=== PATIENT | female | born 1990 | race Caucasian/White ===

== ENCOUNTER 2016-12-27 17:13 | Emergency (ER) | payer OTHER ==
[2016-12-27] MEDS ORDERED: NS 1,000 ML IV ONE (17:19)
--- NOTE | 2016-12-27 17:25 | CPEKG ---
Heart Rate: 112 RR Interval: 536 P-R Interval: 160 QRSD Interval: 80 QT Interval: 336 QTC Interval: 459 P Edroy: 68 QRS Edroy: 80 T Wave Edroy: 21 EKG Severity - BORDERLINE ECG - EKG Impression: SINUS TACHYCARDIA EKG Impression: INFERIOR Q WAVES, PROBABLY NORMAL VARIATION Electronically Signed By: Jossue Barroso 27-Dec-2016 17:27:38
--- NOTE | 2016-12-27 17:26 | EDPHY ---
H & P HPI/ROS: CHIEF COMPLAINT: Seizure, chest pain HISTORY OF PRESENT ILLNESS: Patient is a 26-year-old female who comes to the emergency department after having a seizure at the store. After the seizure she began complaining of chest pain. She does have some abrasions to her tongue. She was not incontinent. Her boyfriend states that she was walking and then suddenly became stiff and fell to the ground. boyfriend is not here and it is currently unknown how long the seizure lasted. The patient states that she has had 1 seizure before but no cause was found. At that time she is on a very strict diet and was also dehydrated. 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 She denies any cardiac history. She denies being on any strict diet today. She denies any alcohol abuse or benzodiazepine use. She is not sure as to whether not she had chest pain prior to collapsing. She also states that she was started on antibiotics for strep throat and mono which was diagnosed 2 days ago at the urgent care. She states that her throat is feeling better. REVIEW OF SYSTEMS: Constitutional: denies: chills, fever, recent illness, recent injury EENTM: See HPI Respiratory: denies: cough, shortness of breath Cardiac: See HPI Gastrointestinal/Abdominal: denies: abdominal pain, diarrhea, nausea, vomiting, blood streaked stools Genitourinary: denies: dysuria, frequency, hematuria, pain Musculoskeletal: denies: joint pain, muscle pain Skin: denies: lesions, rash, jaundice, bruising Neurological: denies: headache, numbness, paresthesia, tingling, dizziness, weakness Hematologic/Lymphatic: denies: blood clots, easy bleeding, easy bruising Immunologic/allergic: denies: HIV/AIDS, transplant EXAM: GENERAL: Well-appearing, well-nourished and in no acute distress. HEAD: Atraumatic, normocephalic. EYES: Pupils equal round and reactive to light, extraocular movements intact, sclera anicteric, conjunctiva are normal. ENT: Abrasions/laceration to anterior lateral tongue. TMs normal, nares patent , oropharynx clear without exudates. Moist mucous membranes. NECK: Normal range of motion, supple without lymphadenopathy or JVD. LUNGS: Breath sounds clear to auscultation bilaterally and equal. No wheezes rales or rhonchi. HEART: Regular rate and rhythm without murmurs, rubs or gallops. ABDOMEN: Soft, nontender, normoactive bowel sounds. No guarding, no rebound. No masses appreciated. BACK: No CVA tenderness, no spinal tenderness, step-offs or deformities EXTREMITIES: Normal range of motion, no pitting or edema. No clubbing or cyanosis. NEUROLOGICAL: Cranial nerves II through XII grossly intact. Normal speech, normal gait. 5/5 strength, normal movement in all extremities, normal sensation PSYCH: Normal mood, normal affect. SKIN: Warm, dry, normal turgor, no visible rashes or lesions. Source: Patient, EMS Exam Limitations: No limitations - Medical/Surgical History Hx Asthma: No Hx Chronic Respiratory Disease: No Hx Diabetes: No Hx Cardiac Disease: No Hx Renal Disease: No Hx Cirrhosis: No Hx Alcoholism: No - Family History Significant Family History: No pertinent family hx - Social History Smoking Status: Never smoked Alcohol Use: Sober Drug Use: None Constitutional: Initial Vital Signs Temperature (C) 37.2 C 12/27/16 17:32 Heart Rate 116 H 12/27/16 17:32 Respiratory Rate 20 12/27/16 17:32 Blood Pressure 144/95 H 12/27/16 17:32 O2 Sat (%) 96 12/27/16 17:32 O2 Delivery Mode Room Air,Nasal Cannula O2 (L/minute) 2 Allergies/Adverse Reactions: metoclopramide [From Reglan] Allergy (Verified 12/27/16 17:41) Home Medications: Medication Instructions Recorded Amoxicillin 12/27/16 Lexapro 12/27/16 Restoril 12/27/16 Wellbutrin Xl 12/27/16 Xarelto 12/27/16 chlordiazePOXIDE [Librium 25 mg 25 mg PO ONCE #14 cap 12/27/16 (*)] Medical Decision Making - Diagnostics EKG Interpretation: An EKG obtained and was read and documented in trace view. Please see trace view for full reading and report. Sinus tachycardia, no acute ischemic changes. She does have signs of S1 q.3h T3. Imaging: Results: CT scan of the head was obtained. The results of the study are negative. The study was read by Dr. Henrique Cueva. I viewed the images myself on the PACS system. Results: CT scan of the chest angiogram was obtained. The results of the study are negative. The study was read by Dr. Henrique Cueva. I viewed the images myself on the PACS system. ED Course/Re-evaluation: The patient's fiancee and mother no here. They state that she appear to stiffen up and then collapsed to the ground. She hit her head hard. She then stiff in her back and arch her back for about 30-45 seconds. she then seem to calm down but was confused. The they were not aware for previous seizure but the patient tells me that she was on a extremely low carbohydrate diet and had a low blood glucose at the time. She just ate prior to the episode today. 6:50 p.m. the patient is feeling much better. Her headache resolved with Dilaudid bruise now returning. She is asking for more pain medication. She is not supposed to take Toradol or ibuprofen because of her Xarelto. Also she tells me now that she had taken Valium for a long time for anxiety and recently switched to Klonopin. She switched from Klonopin to Restoril and has taken her last dose of Klonopin 3 days ago. she also did not take her rest over the last 2 days. This is likely the cause of her seizures. She is likely having a withdrawal syndrome. She is not tachycardic or tremulous. She would prefer to manage this from home. Will start her on Librium taper. She will continue taking Restoril at night for sleep. She is in the and has some degree PTSD. Differential Diagnosis: Partial list of the Differential diagnosis considered include but were not limited to; dehydration, seizure, benzodiazepine withdrawal, alcohol withdrawal , electrolyte abnormality, hypoglycemia, syncope, PE, head injury and although unlikely based on the history and physical exam, I also considered non accidental trauma, infection. I discussed these differential diagnoses and the plan with the patient as well as the usual and expected course. The patient understands that the diagnosis is provisional and that in medicine we are not always correct and that further workup is often warranted. Usual and customary warnings were given. All of the patient's questions were answered. The patient was instructed to return to the emergency department should the symptoms at all worsen or return, otherwise to followup with the physician as we discussed. - Data Points Laboratory Results: Laboratory Results 12/27/16 17:28 12/27/16 17:28 12/27/16 12/27/16 12/27/16 17:28 17:28 17:28 WBC RBC Hgb POC Hgb Hct POC Hct MCV MCH MCHC RDW Plt Count MPV Neut % (Auto) Lymph % (Auto) [place] % (Auto) Eos % (Auto) Baso % (Auto) Nucleat RBC Rel Count Absolute Neuts (auto) Absolute Lymphs (auto) Absolute Monos (auto) Absolute Eos (auto) Absolute Basos (auto) Absolute Nucleated RBC Immature Gran % Immature Gran # PT 16.4 SEC H SEC (12.0-15.0) INR 1.32 H (0.83-1.16) APTT 27.4 SEC SEC (23.0-38.0) POC Sodium Sodium 144 mEq/L mEq/L (134-144) POC Potassium Potassium 3.8 mEq/L mEq/L (3.5-5.2) POC Chloride Chloride 101 mEq/L mEq/L (97-110) Carbon Dioxide 16 mEq/l L mEq/l (22-31) Anion Gap 27 mEq/L H mEq/L (8-16) POC BUN BUN 11 mg/dL mg/dL (7-23) Creatinine 0.8 mg/dL mg/dL (0.6-1.0) POC Creatinine Estimated GFR > 60 Glucose 62 mg/dL L mg/dL (70-100) POC Glucose Calcium 10.0 mg/dL mg/dL (8.5-10.4) Troponin I < 0.012 ng/mL ng/mL (0-0.034) Beta HCG, Qual NEGATIVE 12/27/16 12/27/16 17:28 17:21 WBC 13.19 10^3/uL H 10^3/uL (3.80-9.50) RBC 5.21 10^6/uL 10^6/uL (4.18-5.33) Hgb 16.2 g/dL g/dL (12.6-16.3) POC Hgb 17.0 gm/dL H gm/dL (12.3-15.9) Hct 47.9 % H % (38.0-47.0) POC Hct 50 % H % (35.5-47.5) MCV 91.9 fL fL (81.5-99.8) MCH 31.1 pg pg (27.9-34.1) MCHC 33.8 g/dL g/dL (32.4-36.7) RDW 12.1 % % (11.5-15.2) Plt Count 438 10^3/uL H 10^3/uL (150-400) MPV 9.9 fL fL (8.7-11.7) Neut % (Auto) 49.4 % % (39.3-74.2) Lymph % (Auto) 40.8 % % (15.0-45.0) [place] % (Auto) 8.0 % % (4.5-13.0) Eos % (Auto) 0.8 % % (0.6-7.6) Baso % (Auto) 0.5 % % (0.3-1.7) Nucleat RBC Rel Count 0.0 % % (0.0-0.2) Absolute Neuts (auto) 6.51 10^3/uL H 10^3/uL (1.70-6.50) Absolute Lymphs (auto) 5.38 10^3/uL H 10^3/uL (1.00-3.00) Absolute Monos (auto) 1.06 10^3/uL H 10^3/uL (0.30-0.80) Absolute Eos (auto) 0.11 10^3/uL 10^3/uL (0.03-0.40) Absolute Basos (auto) 0.06 10^3/uL 10^3/uL (0.02-0.10) Absolute Nucleated RBC 0.00 10^3/uL 10^3/uL (0-0.01) Immature Gran % 0.5 % % (0.0-1.1) Immature Gran # 0.07 10^3/uL 10^3/uL (0.00-0.10) PT INR APTT POC Sodium 143 mEq/L mEq/L (134-144) Sodium POC Potassium 3.2 mEq/L L mEq/L (3.3-5.0) Potassium POC Chloride 104 mEq/L mEq/L (96-108) Chloride Carbon Dioxide Anion Gap POC BUN 10 mg/dL mg/dL (7-23) BUN Creatinine POC Creatinine 0.8 mg/dL mg/dL (0.6-1.2) Estimated GFR Glucose POC Glucose 67 mg/dL L mg/dL (70-100) Calcium Troponin I Beta HCG, Qual Medications Given: Discontinued Medications Dextrose (Dextrose 50% Syringe) 25 gm IVP EDNOW ONE Stop: 12/27/16 17:48 Last Admin: 12/27/16 18:06 Dose: 25 gm Hydromorphone HCl (Dilaudid) 1 mg IVP EDNOW ONE Stop: 12/27/16 17:46 Last Admin: 12/27/16 18:06 Dose: 1 mg Sodium Chloride (Ns) 1,000 mls @ 0 mls/hr IV ONCE ONE PRN Reason: Wide Open Stop: 12/27/16 17:20 Last Admin: 12/27/16 17:38 Dose: 1,000 mls Ondansetron HCl (Zofran) 4 mg IVP EDNOW ONE Stop: 12/27/16 17:41 Last Admin: 12/27/16 17:52 Dose: 4 mg Point of Care Test Results: 12/27/16 17:21 POC Sodium 143 POC Potassium 3.2 L POC Chloride 104 POC BUN 10 POC Creatinine 0.8 POC Glucose 67 L Departure - Departure Disposition: Home, Routine, Self-Care Clinical Impression: Seizure disorder Benzodiazepine withdrawal Qualifiers: Complication of substance-induced condition: with unspecified complication Qualified Code(s): F13.239 - Sedative, hypnotic or anxiolytic dependence with withdrawal, unspecified Condition: Fair Instructions: New-Onset Seizure in Adults (ED) Additional Instructions: Taper off of the benzodiazepines as prescribed with Librium. You may continue taking the Restoril for sleep. Referrals: Patient,NotPresent [Unknown] - As per Instructions Lidia Lux MD [[facility] [place] Provider] - As per Instructions Prescriptions: chlordiazePOXIDE [Librium 25 mg (*)] 25 mg PO ONCE #14 cap
[2016-12-27] MEDS ORDERED: ONDANSETRON 4 MG/2 ML VIAL ONE (17:28)
[2016-12-27] MEDS ORDERED: IOPAMIDOL (ISOVUE 370) 100 ML BTL IV ONE (17:30)
[2016-12-27 17:33] LABS: % IMMATURE GRANULYOCYTES 0.5 % (0.0-1.1); ABSOLUTE IMMATURE GRANULOCYTES 0.07 10^3/uL (0.00-0.10); ADD DIFF? NO; ADD MORPH? NO; ADD SCAN? NO; ATYPICAL LYMPHOCYTE FLAG 10 (0-99); FRAGMENT RBC FLAG 0 (0-99); HEMATOCRIT 47.9 % (38.0-47.0); HEMOGLOBIN 16.2 g/dL (12.6-16.3); LEFT SHIFT FLG 0 (0-99); LIPEMIA HEMOLYSIS FLAG 90 (0-99); MEAN CELL HEMOGLOBIN 31.1 pg (27.9-34.1); MEAN CELL HEMOGLOBIN CONCENTR. 33.8 g/dL (32.4-36.7); MEAN CELL VOLUME 91.9 fL (81.5-99.8); MEAN PLATELET VOLUME 9.9 fL (8.7-11.7); PLATELET CLUMPS FLAG 0 (0-99); PLATELET COUNT 438 10^3/uL (150-400); RED BLOOD CELL COUNT 5.21 10^6/uL (4.18-5.33); RED CELL DISTRIBUTION WIDTH 12.1 % (11.5-15.2)
[2016-12-27 17:38] VITALS: BP 144/95; PULSE 116; RESP 20; TEMP 99; O2SAT 96
[2016-12-27 17:40] LABS: INR 1.32 (0.83-1.16); PROTIME(PATIENT) 16.4 SEC (12.0-15.0)
[2016-12-27] MEDS ORDERED: ONDANSETRON 4 MG/2 ML VIAL IVP ONE (17:40)
[2016-12-27 17:41] LABS: APTT 27.4 SEC (23.0-38.0)
[2016-12-27 17:43] LABS: ANION GAP 27 mEq/L (8-16); CARBON DIOXIDE 16 mEq/l (22-31); CHLORIDE 101 mEq/L (97-110); CREATININE 0.8 mg/dL (0.6-1.0); GLOMERULAR FILTRATION RATE > 60; GLUCOSE 62 mg/dL (70-100); POTASSIUM 3.8 mEq/L (3.5-5.2); SODIUM 144 mEq/L (134-144)
[2016-12-27] MEDS ORDERED: HYDROmorphONE/DILAUDID 1 MG/ML SYR IVP ONE ×2 (17:45→18:50)
[2016-12-27] MEDS ORDERED: D50W 25 GM/50 ML SYR IVP ONE (17:47)
[2016-12-27 17:55] LABS: TROPONIN I < 0.012 ng/mL (0-0.034)
[2016-12-27] MEDS ORDERED: chlordiazePOXIDE 25 MG CAP PO ONE (18:50)
== END 2016-12-27 19:32 | disposition home or self-care (01) ==
LOC: EDBD 17:13
DX: G40.909 Epilepsy, unspecified, not intractable, without status epilepticus (principal); F13.239 Sedative, hypnotic or anxiolytic dependence with withdrawal, unspecified; Z79.01 Long term (current) use of anticoagulants
CPT/HCPCS: 82947-QW; 96374; J1170; J2405; Q9967